=== PATIENT | female | born 1950 | race Caucasian/White ===

== ENCOUNTER → 2017-08-24 | Outpatient (CLI) | payer MEDICARE, OTHER ==
--- NOTE | 2017-08-25 11:56 | MM ---
Reason for exam: screening (asymptomatic). Last mammogram was performed 2 years and 7 months ago. History: Patient is postmenopausal. Benign left mammotome panel of the left breast, September 18, 2013. Took estrogen for 1 year. Took progesterone for 1 year. Physical Findings: A clinical breast exam by your physician is recommended on an annual basis and results should be correlated with mammographic findings. MG 3D Screening Mammo W/Cad Bilateral CC and MLO view(s) were taken. Prior study comparison: January 07, 2015, bilateral MG diagnostic mammo w CAD RA. March 25, 2014, left breast MG diagnostic mammo LT w CAD. The breast tissue is heterogeneously dense. This may lower the sensitivity of mammography. Finding: There is stable architectural distortion in the upper quadrant of the left breast. Previous mammotome biopsy in the left breast. There is no discrete abnormality. ASSESSMENT: Negative, BI-RAD 1 RECOMMENDATION: Routine screening mammogram of both breasts in 1 year.
== END | disposition home or self-care (01) ==
LOC: RADMAMWWP 10:53
PROVIDERS: ATTEND Family Medicine
DX: Z12.31 Encounter for screening mammogram for malignant neoplasm of breast (principal)
CPT/HCPCS: 77063; G0202

== ENCOUNTER → 2019-04-23 | Outpatient (CLI) | payer MEDICARE, OTHER ==
--- NOTE | 2019-04-25 10:04 | MM ---
Reason for exam: screening (asymptomatic). Last mammogram was performed 1 year and 8 months ago. History: Patient is postmenopausal. Benign left mammotome panel of the left breast, September 18, 2013. Took estrogen for 1 year. Took progesterone for 1 year. Physical Findings: A clinical breast exam by your physician is recommended on an annual basis and results should be correlated with mammographic findings. MG 3D Screening Mammo W/Cad Bilateral CC and MLO view(s) were taken. Prior study comparison: August 24, 2017, bilateral MG 3d screening mammo w/cad. January 07, 2015, bilateral MG diagnostic mammo w CAD RA. The breast tissue is heterogeneously dense. This may lower the sensitivity of mammography. Previous mammotome biopsy in the left breast. No significant changes when compared with prior studies. ASSESSMENT: Negative, BI-RAD 1 RECOMMENDATION: Routine screening mammogram of both breasts in 1 year.
== END | disposition home or self-care (01) ==
LOC: RADMAMWWP 07:51
PROVIDERS: ATTEND Family Medicine
DX: Z12.31 Encounter for screening mammogram for malignant neoplasm of breast (principal)
CPT/HCPCS: 77063; 77067

== ENCOUNTER → 2020-05-21 | Outpatient (CLI) | payer MEDICARE, OTHER ==
--- NOTE | 2020-05-22 08:56 | CT ---
EXAMINATION TYPE: CT sinus wo con DATE OF EXAM: 05/21/2020 COMPARISON: CT brain same date HISTORY: Headaches and chronic sinusitis CT DLP: 686.5 mGycm. Automated Exposure Control for Dose Reduction was Utilized. TECHNIQUE: CT scan of the sinuses is performed without contrast, axial images are obtained, coronal r eformatted images are also reviewed. FINDINGS: The paranasal sinuses including the frontal, ethmoid, sphenoid, and maxillary sinuses bila terally are well-aerated without abnormal opacification, minimal mucoperiosteal thickening present wi thin the right maxillary sinus. The ostiomeatal complex is patent bilaterally on the coronal images. Nel cells are present bilaterally. Visualized portion of mastoid air cells show no abnormal opacification. The globes are intact bilate rally. IMPRESSION: The sinuses are remarkable for only minimal mucoperiosteal thickening right maxillary sin us
--- NOTE | 2020-05-22 08:59 | CT ---
EXAMINATION TYPE: CT brain wo/w con DATE OF EXAM: 05/21/2020 COMPARISON: CT brain 01/17/2016 HISTORY: Draper chronic sinusitis CT DLP: 2905.6 mGycm Automated exposure control for dose reduction was used. CONTRAST: CT scan of the head is performed without and with IV Contrast, patient injected with 100 mL of Isovue 300. FINDINGS: There is no abnormal enhancing mass or midline shift identified. The ventricles and sulci are within normal limits in size. The globes are intact and the visualized sinuses are clear. There are cerebr al vascular calcifications present. Cortical atrophy is likely age-related. Periventricular white mat ter shows patchy low attenuation as on prior exam. IMPRESSION: Negative contrast enhanced head CT exam.
== END | disposition home or self-care (01) ==
LOC: RADCTMAIN 16:23
PROVIDERS: ATTEND Otolaryngology
DX: J32.9 Chronic sinusitis, unspecified (principal); R51 Headache
CPT/HCPCS: 82565; 84520; 70470; 36415; 70486; Q9967

== ENCOUNTER → 2020-09-28 | Outpatient (CLI) | payer MEDICARE, OTHER ==
--- NOTE | 2020-09-29 13:49 | MM ---
Reason for exam: screening (asymptomatic). Last mammogram was performed 1 year and 5 months ago. History: Patient is postmenopausal. Benign left mammotome panel of the left breast, September 18, 2013. Took estrogen for 1 year. Took progesterone for 1 year. Physical Findings: A clinical breast exam by your physician is recommended on an annual basis and results should be correlated with mammographic findings. MG 3D Screening Mammo W/Cad Bilateral CC and MLO view(s) were taken. Prior study comparison: April 23, 2019, bilateral MG 3d screening mammo w/cad. August 24, 2017, bilateral MG 3d screening mammo w/cad. The breast tissue is heterogeneously dense. This may lower the sensitivity of mammography. Previous mammotome biopsy in the left breast. No significant changes when compared with prior studies. ASSESSMENT: Benign, BI-RAD 2 RECOMMENDATION: Routine screening mammogram of both breasts in 1 year.
== END | disposition home or self-care (01) ==
LOC: RADMAMWWP 15:50
PROVIDERS: ATTEND Family Medicine
DX: Z12.31 Encounter for screening mammogram for malignant neoplasm of breast (principal)
CPT/HCPCS: 77063; 77067

== ENCOUNTER → 2021-05-31 | Outpatient (CLI) | payer MEDICARE, OTHER ==
--- NOTE | 2021-05-31 10:08 | XR ---
EXAMINATION TYPE: XR chest 2V DATE OF EXAM: 05/31/2021 COMPARISON: Chest x-ray January 17, 2016. CT chest July 18, 2016. HISTORY: History of alpha-1 antitrypsin deficiency with cough and congestion. TECHNIQUE: Frontal and lateral views of the chest are obtained. FINDINGS: There is background chronic parenchymal changes with [id number] bibasilar linear sca rring redemonstrated There is no new suspicious focal air space opacity or pneumothorax seen. New tin y bilateral pleural effusions are present on the lateral view. The cardiac silhouette size is stable and within normal limits. The osseous structures are intact. IMPRESSION: Chronic parenchymal changes with new tiny bilateral pleural effusions. No new focal infiltrate.
== END | disposition home or self-care (01) ==
LOC: RADXRMAIN 09:45
PROVIDERS: ATTEND Physician Assistant Medical
DX: J90 Pleural effusion, not elsewhere classified (principal); J98.4 Other disorders of lung
CPT/HCPCS: 71046

== ENCOUNTER → 2022-11-16 | Outpatient (CLI) | payer MEDICARE, OTHER ==
--- NOTE | 2022-11-17 08:47 | MM ---
Reason for Exam: Screening (asymptomatic). Last mammogram was performed 2 year(s) and 1 month(s) ago. Patient History: Menarche at age 16. Patient has no children. Postmenopausal. Patient used Estrogen for 1 year. Patient used Progesterone for 1 year. 09/18/2013, Benign Core Biopsy on the left side. Risk Values: Margaret 5 year model risk: 2.1%. NCI Lifetime model risk: 6.0%. Prior Study Comparison: 08/24/2017 Bilateral Screening Mammogram, [facility]. 04/23/2019 Bilateral Screening Mammogram, [facility]. 09/28/2020 Bilateral Screening Mammogram, [facility]. Tissue Density: The breast tissue is heterogeneously dense. This may lower the sensitivity of mammography. Findings: Analyzed By CAD. There is no suspicious group of microcalcifications or new suspicious mass in either breast. Biopsy clip within left breast. Overall Assessment: Benign, BI-RAD 2 Management: Screening Mammogram of both breasts in 1 year. A clinical breast exam by your physician is recommended on an annual basis and results should be correlated with mammographic findings. Electronically signed and approved by: Edmar White D.O.
== END | disposition home or self-care (01) ==
LOC: RADMAMWWP 09:42
PROVIDERS: ATTEND Family Medicine
DX: Z12.31 Encounter for screening mammogram for malignant neoplasm of breast (principal); Z78.0 Asymptomatic menopausal state; Z98.890 Other specified postprocedural states
CPT/HCPCS: 77063; 77067

== ENCOUNTER → 2023-11-30 | Outpatient (CLI) | payer MEDICARE, OTHER ==
--- NOTE | 2023-11-30 14:34 | MM ---
Reason for Exam: Screening (asymptomatic). Last mammogram was performed 1 year(s) and 1 month(s) ago. Patient History: Menarche at age 16. Patient has no children. Postmenopausal. Patient used Estrogen for 1 year. Patient used Progesterone for 1 year. 09/18/2013, Benign Core Biopsy on the left side. Risk Values: Margaret 5 year model risk: 2.1%. NCI Lifetime model risk: 5.8%. Prior Study Comparison: 04/23/2019 Bilateral Screening Mammogram, [facility]. 09/28/2020 Bilateral Screening Mammogram, [facility]. 11/16/2022 Bilateral MG 3D screening mammo w/cad, [facility]. Tissue Density: There are scattered areas of fibroglandular density. Findings: Analyzed By CAD. Right breast: There is no suspicious group of microcalcifications or new suspicious mass. Left breast: There is no suspicious group of microcalcifications or new suspicious mass. Overall Assessment: Negative, BI-RAD 1 Management: Screening Mammogram of both breasts in [address] [facility] will attempt to contact patient to return for supplemental views and ultrasound if indicated. Patient should continue monthly self-breast exams. A clinical breast exam by your physician is recommended on an annual basis. This exam should not preclude additional follow-up of suspicious palpable abnormalities. Note on Margaret scores and lifetime risk: 1. A Margaret score greater than 3% is considered moderate risk. If this is the case, consider specialist referral to assess eligibility for a risk reducing agent. 2. If overall lifetime risk for the development of breast cancer is 20% or higher, the patient may qualify for future screening with alternating mammogram and breast MRI. Electronically signed and approved by: Diaz Camupzano DO
== END | disposition home or self-care (01) ==
LOC: RADMAMWWP 11:49
PROVIDERS: ATTEND Family Medicine
DX: Z12.31 Encounter for screening mammogram for malignant neoplasm of breast (principal); Z78.0 Asymptomatic menopausal state
CPT/HCPCS: 77063; 77067

== ENCOUNTER → 2025-03-20 | Outpatient (CLI) | payer MEDICARE, OTHER ==
--- NOTE | 2025-03-20 11:19 | MM ---
Reason for Exam: Screening (asymptomatic). Last mammogram was performed 1 year(s) and 3 month(s) ago. Patient History: Menarche at age 16. Patient has no children. Postmenopausal. Patient used Estrogen for 1 year. Patient used Progesterone for 1 year. 09/18/2013, Benign Core Biopsy on the left side. Risk Values: Margaret 5 year model risk: 2.1%. NCI Lifetime model risk: 5.5%. Prior Study Comparison: 09/28/2020 Bilateral Screening Mammogram, [facility]. 11/16/2022 Bilateral MG 3D screening mammo w/cad, [facility]. 11/30/2023 Bilateral MG 3D screening mammo w/cad, [facility]. Tissue Density: There are scattered areas of fibroglandular density. Findings: Analyzed By CAD. Left breast biopsy clip. Right breast: There is no suspicious group of microcalcifications or new suspicious mass. Left breast: There is no suspicious group of microcalcifications or new suspicious mass. Overall Assessment: Benign, BI-RAD 2 Management: Screening Mammogram of both breasts in [address] [facility] will attempt to contact patient to return for supplemental views and ultrasound if indicated. Patient should continue monthly self-breast exams. A clinical breast exam by your physician is recommended on an annual basis. This exam should not preclude additional follow-up of suspicious palpable abnormalities. Note on Margaret scores and lifetime risk: 1. A Margaret score greater than 3% is considered moderate risk. If this is the case, consider specialist referral to assess eligibility for a risk reducing agent. 2. If overall lifetime risk for the development of breast cancer is 20% or higher, the patient may qualify for future screening with alternating mammogram and breast MRI. [facility], , 03/20/2025 11:17 AM. Electronically signed and approved by: Diaz Campuzano DO
== END | disposition home or self-care (01) ==
LOC: RADMAMWWP 10:01
PROVIDERS: ATTEND Family Medicine
DX: Z12.31 Encounter for screening mammogram for malignant neoplasm of breast (principal); R92.323 Mammographic fibroglandular density, bilateral breasts; Z78.0 Asymptomatic menopausal state
CPT/HCPCS: 77063; 77067